=== PATIENT | male | born 1980 ===

== ENCOUNTER 2023-07-02 18:13 | Emergency (ER) | payer SELFPAY ==
[~2023-07-02] VITALS: Ht 150 cm; Wt 56.6 kg
--- NOTE | 2023-07-02 18:52 | ED General ---
General Chief Complaint: Lower Extremity Stated Complaint: SWOLLEN FEET, DIABETIC Nursing Triage Note: PT ARRIVED POV WITH CC OF SWOLLEN FEET AND ABD PAIN. PT STATES THAT IT STARTED 2 WEEKS AGO. PT HAS HAD N/V AND DIARRHEA. PT SENT TO ER FROM [facility] OFFICE IN [place]. 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 The video director of graduate medical education was used for the translation. He has been experiencing vomiting several times over the past 2 weeks. He reports diarrhea x 3 weeks. He denies any pain. His foot edema has been a long-term and worsening over the past 2 weeks.. He reports his blood sugar was "800.8." He is diabetic. He is not on insulin but takes Januvia. He describes a burning paresthesia of the feet consistent with neuropathy. Allergies and Home Medications Allergies Coded Allergies: No Known Drug Allergies (Unverified , 07/02/23) Patient Home Medication List Home Medication List Reviewed: Yes Gabapentin (Gabapentin) 100 Mg Capsule, 1-2 MG PO Q8H PRN for neuropathic pain Prescribed by: DAAD BUTLER on 07/02/232127 Metformin HCl (Metformin HCl) 500 Mg Tablet, 500 MG PO BID Prescribed by: DADA BUTLER on 07/02/232127 Ondansetron (Ondansetron Odt) 4 Mg Tab.rapdis, 4 MG SL Q4H PRN for NAUSEA/VOMITING Prescribed by: DADA BUTLER on 07/02/232127 Review of Systems Review of Systems Constitutional: no symptoms reported EENTM: no symptoms reported Respiratory: no symptoms reported Cardiovascular: see HPI Gastrointestinal: see HPI Genitourinary: no symptoms reported Musculoskeletal: no symptoms reported Skin: no symptoms reported Psychiatric/Neurological: See HPI Hematologic/Lymphatic: No Symptoms Reported Immunological/Allergic: no symptoms reported Past Rvwbost-Ovbevr-Lxkjhw Hx Patient Social History Tobacco Use?: No Substance use?: No Alcohol Use?: No Past Medical History Surgery/Hospitalization HX: DIABETIC Surgeries: No Respiratory: No Cardiac: No Neurological: No Genitourinary: No Gastrointestinal: No Musculoskeletal: No Endocrine: Yes Diabetes, Non-Insulin dep HEENT: No Cancer: No Psychosocial: No Integumentary: No Physical Exam Vital Signs Capillary Refill : Height, Weight, BMI Height: '" Weight: lbs. oz. kg; 25.00 BMI Method: General Appearance: No Apparent Distress, WD/WN, Thin HEENT: Normal ENT Inspection, Other (MM somewhat dry) Neck: Normal Inspection Respiratory: Lungs Clear, Normal Breath Sounds, No Accessory Muscle Use Cardiovascular: Regular Rate, Rhythm, No Murmur, Other (Moderate pitting edema of the feet bilaterally) Gastrointestinal: Non Tender, Soft; No Distended Extremity: Other (see above) Neurologic/Psychiatric: Alert, Oriented x3, No Motor/Sensory Deficits, Normal Mood/Affect Skin: Normal Color, Warm/Dry Progress/Results/Core Measures Suspected Sepsis SIRS Temperature: Pulse: 92 Respiratory Rate: Laboratory Tests 07/02/23 19:05: White Blood Count 5.0 Blood Pressure 107 /74 Mean: 85 Laboratory Tests 07/02/23 19:05: Creatinine 0.89, Platelet Count 179, Total Bilirubin 0.5 Results/Orders Lab Results Laboratory Tests Test 07/02/23 18:37 07/02/23 18:53 07/02/23 19:05 07/02/23 20:06 Range/Units Glucometer 394 H 393 H 70-110 MG/DL Urine Color YELLOW Urine Clarity CLEAR Urine pH 7.0 5-9 Urine Specific [place] 1.010 L 1.016-1.022 Urine Protein NEGATIVE NEGATIVE Urine Glucose (UA) 3+ H NEGATIVE Urine Ketones NEGATIVE NEGATIVE Urine Nitrite NEGATIVE NEGATIVE Urine Bilirubin NEGATIVE NEGATIVE Urine Urobilinogen 0.2 < = 1.0 MG/DL Urine Leukocyte Esterase NEGATIVE NEGATIVE Urine RBC (Auto) NEGATIVE NEGATIVE Urine RBC NONE /HPF Urine WBC NONE /HPF Urine Squamous Epithelial Cells NONE /HPF Urine Crystals NONE /LPF Urine Bacteria NEGATIVE /HPF Urine Casts NONE /LPF Urine Mucus NEGATIVE /LPF Urine Culture Indicated NO White Blood Count 5.0 4.3-11.0 10^3/uL Red Blood Count 3.78 L 4.30-5.52 10^6/uL Hemoglobin 12.3 L 13.3-17.7 g/dL Hematocrit 35 L 40-54 % Mean Corpuscular Volume 91 80-99 fL Mean Corpuscular Hemoglobin 33 25-34 pg Mean Corpuscular Hemoglobin Concent 36 32-36 g/dL Red Cell Distribution Width 12.1 10.0-14.5 % Platelet Count 179 130-400 10^3/uL Mean Platelet Volume 11.6 9.0-12.2 fL Immature Granulocyte % (Auto) 0 % Neutrophils (%) (Auto) 74 42-75 % Lymphocytes (%) (Auto) 13 12-44 % Monocytes (%) (Auto) 11 0-12 % Eosinophils (%) (Auto) 1 0-10 % Basophils (%) (Auto) 0 0-10 % Neutrophils # (Auto) 3.7 1.8-7.8 10^3/uL Lymphocytes # (Auto) 0.7 L 1.0-4.0 10^3/uL Monocytes # (Auto) 0.6 0.0-1.0 10^3/uL Eosinophils # (Auto) 0.1 0.0-0.3 10^3/uL Basophils # (Auto) 0.0 0.0-0.1 10^3/uL Immature Granulocyte # (Auto) 0.0 0.0-0.1 10^3/uL Sodium Level 131 L 135-145 MMOL/L Potassium Level 4.4 3.6-5.0 MMOL/L Chloride Level 95 L 98-107 MMOL/L Carbon Dioxide Level 24 21-32 MMOL/L Anion Gap 12 5-14 MMOL/L Blood Urea Nitrogen 13 7-18 MG/DL Creatinine 0.89 0.60-1.30 MG/DL Estimat Glomerular Filtration Rate 108 BUN/Creatinine Ratio 15 Glucose Level 453 *H 70-105 MG/DL Calcium Level 8.9 8.5-10.1 MG/DL Corrected Calcium 9.2 8.5-10.1 MG/DL Magnesium Level 2.5 H 1.6-2.4 MG/DL Total Bilirubin 0.5 0.1-1.0 MG/DL Aspartate Amino Transf (AST/SGOT) 82 H 5-34 U/L Alanine Aminotransferase (ALT/SGPT) 89 H 0-55 U/L Alkaline Phosphatase 162 H 40-136 U/L B-Type Natriuretic Peptide 22.6 <100.0 PG/ML Total Protein 6.6 6.4-8.2 GM/DL Albumin 3.6 3.2-4.5 GM/DL Test 07/02/23 20:42 Range/Units Glucometer 311 H 70-110 MG/DL My Orders Orders - DADA MCCALLUM MD Bnp [place] (07/02/23 18:48) Cbc And Automated Diff (07/02/23 18:48) Comprehensive Metabolic Panel (07/02/23 18:48) Magnesium (07/02/23 18:48) Ua Culture If Indicated (07/02/23 18:48) Ed Iv/Invasive Line Start (07/02/23 18:48) Ns Iv 500 Ml (Ns Iv 500 Ml) (07/02/23 19:00) Accucheck Stat ONCE (07/02/23 19:47) Accucheck Stat ONCE (07/02/23 19:47) Insulin (Regular) Per Unit (Insulin (Reg (07/02/23 20:15) Gabapentin Capsule (Gabapentin Capsule) (07/02/23 20:30) Im/Sub-Q Injection Non-Ab Ed (07/02/23 ) Medications Given in ED Vital Signs/I&O Capillary Refill : Blood Pressure Mean: 85 Progress Note : Progress Note Labs were reviewed and interpreted by me. CBC revealed mild anemia with Hgb of 12.3. FSBS was 394. Glucose on blood draw was 453. Patient was treated with NS 500 mL bolus and insulin 5 units SQ. Repeat FSBS were 393 and 311. This represented acceptable improvement. Chemistry revealed sodium of 131 and mildly elevated liver enzymes. UA was notable for 3+ glucose. Gabapentin was given for presumed neuropathic pain. See discharge instructions for further discussion. Gabapentin, metformin and zofran were prescribed. Departure Impression Primary Impression: Hyperglycemia Additional Impressions: Poorly controlled type 2 diabetes mellitus Nausea & vomiting Qualified Codes: R11.2 - Nausea with vomiting, unspecified Lower extremity edema Neuropathy of both feet Disposition: HOME, SELF-CARE Condition: Improved Departure-Patient Inst. Decision time for Depature: 21:21 Referrals: NIKI ARGUETA APRN (PCP) Primary Care Physician Patient Instructions: Diabetic Neuropathy, Type 2 diabetes Add. Discharge Instructions: Your diabetes appears to be an adequately controlled at this time. Please add metformin to your current medications for better control of diabetes. Take metf ormin 500 mg twice a day with your 2 largest meals. Try to check your blood sugars in the morning before eating and drinking and then again 2 hours after each meal. Record these blood sugars and discuss them with your primary care provider and a follow-up visit. Please see your primary care provider soon as possible. Call tomorrow morning for an appointment. Eat a low sugar, low carbohydrate diet. Lean meats and vegetables are good foods to eat with diabetes. Avoid sweets, sugary drinks, and other excess carbohydrates such as potato and grain products. Drink plenty of water to stay well-hydrated. Elevate your feet to the level of your heart is much as possible when at rest to help reduce swelling. Also avoid consuming salty foods and avoid adding salt to your food. Reducing salt intake should help with swelling. You may use the Zofran (ondansetron) as prescribed for nausea and vomiting. Your neuropathy, nausea, frequent urination, and swelling will hopefully all improve with better control of your blood sugars. You are being prescribed gabapentin (Neurontin) for nerve pain. This medication may cause drowsiness, so use with caution. Do not drive, operate machinery, or make important decisions on this medication until you know how it affects you. Dosing of this medication may be adjusted by your primary care provider as necessary. Return to the emergency room if you have worsening symptoms despite following these instructions. Return to the ER if you are having blood sugars that are consistently over 300 or dipping below 70. All discharge instructions reviewed with patient and/or family. Voiced understanding. Scripts Gabapentin (Gabapentin) 100 Mg Capsule 1-2 MG PO Q8H PRN for neuropathic pain, #20 CAP Prov: DADA MCCALLUM MD 07/02/23 Ondansetron (Ondansetron Odt) 4 Mg Tab.rapdis 4 MG SL Q4H PRN for NAUSEA/VOMITING, #10 TAB Prov: DADA MCCALLUM MD 07/02/23 Metformin HCl (Metformin HCl) 500 Mg Tablet 500 MG PO BID, #30 TAB Prov: DADA MCCALLUM MD 07/02/23 DADA MCCALLUM MD Jul 02, 2023 18:52
[2023-07-02] MEDS ORDERED: NS IV 500 ML 500 ML IV ONE (19:00)
[2023-07-02 19:10] LABS: BACTERIA,URINE NEGATIVE /HPF; BILIRUBIN,URINE NEGATIVE (NEGATIVE); CLARITY,URINE CLEAR; COLOR,URINE YELLOW; GLUCOSE, URINE (UA) 3+ (NEGATIVE); KETONES,URINE NEGATIVE (NEGATIVE); LEUKOCYTE ESTERASE ,URINE NEGATIVE (NEGATIVE); NITRITE,URINE NEGATIVE (NEGATIVE); PROTEIN,URINE NEGATIVE (NEGATIVE)
[2023-07-02 19:11] LABS: BASOPHILS % (AUTO) 0 % (0-10); EOSINOPHILS # (AUTO) 0.1 10^3/uL (0.0-0.3); EOSINOPHILS % (AUTO) 1 % (0-10); HEMATOCRIT 35 % (40-54); HEMOGLOBIN 12.3 g/dL (13.3-17.7); LYMPHOCYTES # (AUTO) 0.7 10^3/uL (1.0-4.0); LYMPHOCYTES % (AUTO) 13 % (12-44); MEAN CORPUSCULAR HEMOGLOBIN 33 pg (25-34); MEAN CORPUSCULAR HGB CONC 36 g/dL (32-36); MEAN CORPUSCULAR VOLUME 91 fL (80-99); MEAN PLATELET VOLUME 11.6 fL (9.0-12.2); MONOCYTES # (AUTO) 0.6 10^3/uL (0.0-1.0); MONOCYTES % (AUTO) 11 % (0-12); NEUTROPHILS # (AUTO) 3.7 10^3/uL (1.8-7.8); NEUTROPHILS % (AUTO) 74 % (42-75); PLATELET COUNT 179 10^3/uL (130-400)
[2023-07-02 19:21] LABS: ALBUMIN 3.6 GM/DL (3.2-4.5)
[2023-07-02 19:22] LABS: POTASSIUM 4.4 MMOL/L (3.6-5.0)
[2023-07-02 19:23] LABS: CALCIUM 8.9 MG/DL (8.5-10.1)
[2023-07-02 19:24] LABS: TOTAL PROTEIN 6.6 GM/DL (6.4-8.2)
[2023-07-02 19:26] LABS: BILIRUBIN,TOTAL 0.5 MG/DL (0.1-1.0)
[2023-07-02 19:27] LABS: CREATININE SERUM 0.89 MG/DL (0.60-1.30)
[2023-07-02 19:30] LABS: MAGNESIUM 2.5 MG/DL (1.6-2.4)
[2023-07-02] MEDS ORDERED: inSUlin (REGULAR) HUMAN 1 UNIT/0.01 ML (CHARGE PER UNIT) SC ONE (20:15)
[2023-07-02] MEDS ORDERED: GABAPENTIN 100 MG CAPSULE PO ONE (20:30)
[2023-07-02] MEDS ORDERED: ONDA4TAB11 SL (21:28)
[2023-07-02] MEDS ORDERED: GABA-486 PO (21:28)
[2023-07-02] MEDS ORDERED: METF-397 PO (21:28)
[2023-07-02 21:43] VITALS: BP 119/79
== END 2023-07-02 21:52 | disposition home or self-care (01) ==
LOC: EDBD 18:25 → ER 18:25
DX: E11.65 Type 2 diabetes mellitus with hyperglycemia (principal); E11.40 Type 2 diabetes mellitus with diabetic neuropathy, unspecified; R11.2 Nausea with vomiting, unspecified; D64.9 Anemia, unspecified; R74.01 Elevation of levels of liver transaminase levels; Z79.84 Long term (current) use of oral hypoglycemic drugs
CPT/HCPCS: 36415; 80053; 81000; 82947; 83735; 83880; 85025; 96360; 96372